=== PATIENT | male | born 1980 | race Caucasian/White ===

== ENCOUNTER 2022-02-21 11:27 | Emergency (ER) | payer OTHER, SELFPAY ==
[2022-02-21 11:28] VITALS: BP 171/93; PULSE 107; RESP 17; TEMP 36.8; O2SAT 100
[2022-02-21 11:39] VITALS: RESP 26
--- NOTE | 2022-02-21 11:39 | ECG_ITS ---
Measurements Intervals [place] Rate: 101 P: 60 KS: 160 QRS: 42 QRSD: 96 T: 40 QT: 328 QTc: 425 Interpretive Statements SINUS TACHYCARDIA ABNORMAL RHYTHM ECG NO PREVIOUS ECG AVAILABLE FOR COMPARISON Electronically Signed On 02-27-2022 21:19:08 CDT by Loulou Elder M.D.
--- NOTE | 2022-02-21 12:11 | ED.ABDPAIN ---
HPI - Abdominal Pain General Chief Complaint: Overdose Stated Complaint: overdose, heroin Time Seen by Provider: 02/21/22 11:46 Source: patient Mode of arrival: EMS Limitations: no limitations History of Present Illness HPI narrative: Patient is a 41-year-old male brought in by EMS due to drug overdose. Patient was given Narcan at the scene which eventually reversed his decreased responsiveness. Upon arrival to the emergency room patient is alert awake and oriented x4. Patient states that his friend gave him heroin to help with his pain, does not know what is laced with, last summer remembered I was talking to him my friend and next thing I know I was inside and ambulance . Patient states that it is a first-time that he used heroin, has been having back pain, has no medication to treat it and that is why he used it. 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 Patient denies any headache, dizziness, chest pain, shortness of breath, abdominal pain, nausea, vomiting, diarrhea, fever or chills. Patient denies any incontinence, weakness or numbness. Patient denies any suicidal homicidal thoughts. Related Data Home Medications Medication Instructions Recorded Confirmed No Home Medications 02/21/22 02/21/22 Allergies Allergy/AdvReac Type Severity Reaction Status Date / Time ketorolac Allergy Unknown Verified 02/21/22 11:42 tramadol Allergy Unknown Verified 02/21/22 11:42 Review of Systems Review of Systems: Per HPI All systems reviewed & are unremarkable except as noted in HPI and below Constitutional: Constitutional: Denies body ache(s), Denies chills, Denies excessive sweating, Denies fatigue, Denies fever(s), Denies headache(s), Denies lethargy, Denies malaise, Denies weakness and Denies weight loss Eyes: Eyes: Denies blurry vision, Denies change in vision and Denies loss of vision ENT: Denies dizziness, Denies ear discharge, Denies headache(s), Denies lip swelling, Denies epistaxis, Denies nasal congestion, Denies neck pain, Denies throat swelling and Denies tongue swelling Cardiovascular: Cardiovascular: Denies chest pain, Denies chest pain at rest, Denies chest pain with activity, Denies diaphoresis, Denies rapid heart rate, Denies edema, Denies irregular heart rhythm, Denies lightheadedness, Denies palpitations, Denies dyspnea and Denies dyspnea on exertion Respiratory: Respiratory: Denies chest congestion, Denies cough, Denies hemoptysis, Denies dyspnea and Denies dyspnea on exertion Gastrointestinal: Gastrointestinal: Denies abdominal pain, Denies melena, Denies hematochezia, Denies diarrhea, Denies nausea, Denies vomiting and Denies hematemesis Musculoskeletal: Musculoskeletal: Denies abnormal gait, Denies deformity, Denies joint swelling, Denies limited range of motion, Denies neck pain and Denies numbness Neurologic: Denies Abnormal speech present, Denies abnormal gait, Denies confusion, Denies dizziness, Denies headache(s), Denies focal weakness, Denies loss of vision, Denies numbness, Denies Other visual disturbances, Denies Sensory deficit (Neuro) and Denies weakness Psychiatric: Psychiatric: Denies confusion, Denies depression, Denies auditory hallucinations, Denies homicidal ideation and Denies suicidal ideation Endocrine: Endocrine: Denies cold intolerance, Denies excessive sweating, Denies fatigue, Denies heat intolerance and Denies palpitations Hematologic/Lymphatic: Hematologic/Lymphatic: Denies easy bleeding and Denies easy bruising Allergic/Immunologic: Allergic/Immunologic: Denies lip swelling, Denies throat swelling and Denies tongue swelling PMFSH Comments Past medical history: Hypertension Family history: Unknown Social history: Positive smoker, occasional EtOH use, occasional drug use Exam Const: General: cooperative, comfortable, no acute distress, well developed, alert and awake; No confusion Orientation/consciousness
[2022-02-21] MEDS: SODIUM CHLORIDE 0.9% IV 1,000 ML 999 ML IV CONT (12:19)
--- NOTE | 2022-02-21 12:23 | PC.NURSE ---
Pt unable to provide urine sample at this time, declined straight cath, has IV fluids infusing - given urinal and call light.
[2022-02-21 12:34] VITALS: BP 154/94; PULSE 130; RESP 28; O2SAT 99
[2022-02-21 12:34] LABS: Basophils Percent Auto 0.2 % (0.2-1.2); Eosinophils Absolute Auto 0.1 K/mm3 (0-0.3); Eosinophils Percent Auto 0.5 % (0-4.4); Hematocrit 46.3 % (42.0-52.0); Immature Granulocyte Absolute 0.03 K/mm3 (0.00-0.031); Immature Granulocyte Percent A 0.2 % (0-0.5); Lymphocytes Percent Auto 10.9 % (18.3-44.2); Mean Corpuscular HGB Conc 34.6 g/dl (32-36); Mean Corpuscular Hemoglobin 31.7 pg (26-34); Mean Corpuscular Volume 91.9 fl (80-100); Mean Platelet Volume 8.4 fl (7.4-10.4); Monocytes Absolute Auto 0.8 K/mm3 (0.1-0.6); Monocytes Percent Auto 6.1 % (2.6-8.5); Neutrophils Absolute Auto 10.5 K/mm3 (1.3-6.7); Neutrophils Percent Auto 82.1 % (45.5-73.1); Platelet Count Result 346 k/mm3 (150-375); Red Blood Count 5.04 M/mm3 (4.6-6.20); Red Cell Distribution Width 13.8 % (11.5-14.5); White Blood Count 12.8 K/mm3 (4.5-10.0)
[2022-02-21 12:45] LABS: Alanine Aminotransferase 36 U/L (4-50); Alkaline Phosphatase 81 U/L (38-126); Anion Gap 10 mmol/L (8-16); Aspartate Amino Transferase 37 U/L (17-59); Bilirubin,Total 0.7 mg/dL (0.2-1.3); Blood Urea Nitrogen 17 mg/dL (9-20); Calcium 9.8 mg/dL (8.4-10.2); Carbon Dioxide 30 mmol/L (22-30); Chloride 102 mmol/L (98-107); Estimated CRCL calculation 84 ml/min; Estimated Glomerular Filt Rate > 60; Glucose 117 mg/dL (65-110); Potassium 4.1 mmol/L (3.4-5.0); Sodium 142 mmol/L (137-145)
[2022-02-21 12:48] LABS: Acetaminophen < 10 ug/mL (10-30); Ethanol < 10 mg/dL (<10); Salicylate < 1.0 mg/dL (2-20)
--- NOTE | 2022-02-21 14:06 | PC.NURSE ---
Pt attempting to give urine sample in bathroom at this time, declines straight cath.
[2022-02-21 14:14] VITALS: BP 151/94; PULSE 111; RESP 22; O2SAT 98
[2022-02-21 14:34] LABS: Barbiturate Screen Urine Negative (Negative); Benzodiazepines Screen Urine Positive (Negative)
[2022-02-21 14:37] LABS: Cannabinoid Screen Urine Positive (Negative); Cocaine Screen Urine Negative (Negative); Methadone Screen Urine Negative (Negative); Opiate Screen Urine Positive (Negative); Phencyclidine Screen Urine Negative (Negative)
--- NOTE | 2022-02-21 15:22 | PC.NURSE ---
Pt out of room and states has ride coming, wishes to sign out AMA. Told pt he must sign paperwork and IV needs to be removed prior to his leaving. Pt agreed and approached desk, this RN states to go back to room for IV removal. Pt ambulated back to room in no distress.
[2022-02-21 15:26] VITALS: BP 156/96; PULSE 107; RESP 20; O2SAT 98
[2022-02-21 15:41] LABS: Amphetamine Screen Urine Positive (Negative)
== END 2022-02-21 15:27 | disposition left against medical advice (07) ==
PROVIDERS: Emergency Provider Emergency Medicine
DX: T40.1X1A Poisoning by heroin, accidental (unintentional), initial encounter (principal); F17.200 Nicotine dependence, unspecified, uncomplicated; R00.0 Tachycardia, unspecified
CPT/HCPCS: 36415; 80053; 80307; 85025; 93005; 96360; 96361; 99283; J7030

== ENCOUNTER 2022-05-02 20:00 | Emergency (ER) | payer OTHER, SELFPAY ==
--- NOTE | 2022-05-02 20:04 | ED.ABDPAIN ---
HPI - Abdominal Pain General Stated Complaint: abd pain Time Seen by Provider: 05/02/22 20:08 Source: patient and RN notes reviewed Mode of arrival: ambulatory Limitations: no limitations History of Present Illness HPI narrative: 41-year-old male presents with concern for abdominal pain, right flank pain, hematuria, passing a kidney stone. He reports prior to arrival he passed a stone that was very painful with hematuria, reports since then he is having difficulty passing any urine at all. He reports right flank pain, abdominal pain. He denies fever, body aches, chills. He reports history of kidney stones. MD elicited complaint: flank pain Related Data Home Medications Medication Instructions Recorded Confirmed No Home Medications 02/21/22 02/21/22 Allergies Allergy/AdvReac Type Severity Reaction Status Date / Time ketorolac Allergy Unknown Verified 05/02/22 20:06 tramadol Allergy Unknown Verified 05/02/22 20:06 Review of Systems Review of Systems: CONSTITUTIONAL: Denies malaise, chills, sweats, or fever. RESPIRATORY: Denies cough or dyspnea. GASTROINTESTINAL: Denies abdominal pain, nausea, vomiting, diarrhea, bloody, or mucous stools. GENITOURINARY: Denies dysuria, hematuria, right flank pain MUSCULOSKELETAL: Denies myalgia. NEUROLOGIC: Denies headache. All systems reviewed & are unremarkable except as noted in HPI and below PMFSH Comments At time of signature, agree with nursing past medical, surgical, social and family history. There is no relevant family history pertinent to the presenting complaint Exam Narrative: GENERAL: Nontoxic-appearing and in no acute distress. HEAD: Normocephalic, atraumatic. EYES: PERRLA, conjunctivae clear ENT: Nares clear. Mucous membranes moist. NECK: Supple. No lymphadenopathy CHEST: Speaks in full sentences. No respiratory distress. HEART: Regular rate and rhythm. SKIN: Warm, dry, no rash. NEURO: Alert and oriented x3. PSYCH: Slightly agitated, hyperactive Course Course Emergency Course: Patient is aware of, understands and agrees to be transferred to the emergency department. Patient agrees to proceed directly to the emergency department. Portions of this record may have been created with voice recognition software Level of Care: Express Care Visit Vital Signs Vital signs: Reviewed. Transfer Transfered to: [facility] Medical Transportation: Other (Private vehicle) Transfer rationale: Flank pain, hematuria, Accepting physician: Bigg Transfer comments: Patient stable for transfer via private vehicle MDM - Abdominal Pain MDM Narrative Medical decision making narrative: Exam findings warrant further evaluation emergency department; patient is non-toxic appearing and is in no distress. Differential Diagnosis Differential diagnosis: Likely abdominal pain and calculus of kidney Critical Care Time Critical Care Time Critical Care Time: No Discharge Plan Discharge Clinical Impression: Acute flank pain Patient Disposition: Acute Care Hospital Condition: Stable Prescriptions: No Action No Home Medications Follow-up/Referrals: UNKNOWN,DOCTOR [Primary Care Provider] - Time of Disposition: 20:22
[2022-05-02 20:10] VITALS: BP 123/101; PULSE 99; RESP 16; TEMP 36.7; O2SAT 99
--- NOTE | 2022-05-02 20:21 | PC.NURSE ---
requested to be transferred to [facility]. stated unable to give ua spec. and last similar episode had to be catherized.
--- NOTE | 2022-05-02 20:30 | PC.NURSE ---
party demonstrator and rn chart faxed to [facility] at [phone]
--- NOTE | 2022-05-02 20:36 | PC.NURSE ---
was given a urine strainer at [place] by nurse lemus.
== END 2022-05-02 20:22 | disposition short-term general hospital (02) ==
PROVIDERS: Emergency Provider Nurse Practitioner
DX: R10.9 Unspecified abdominal pain (principal)
CPT/HCPCS: 99212; G0463

== ENCOUNTER 2022-05-20 22:13 | Emergency (ER) | payer OTHER, SELFPAY ==
--- NOTE | ~2022-05-20 | XR_ITS ---
XR lumbar spine 2-3V DATE: 05/21/2022 01:40 INDICATION: Fall. Back pain. TECHNIQUE: AP, lateral, coned lateral lumbosacral views COMPARISON: None FINDINGS: Normal alignment of the lumbar vertebrae. No fracture or bone destruction or spondylolisthe sis. The lumbar pedicles are intact. There is moderately severe degenerative disc disease at L1-2, moderate degenerative disc disease at L 2-3 and mild degenerative disc disease at the remaining lumbar and lumbosacral interspaces. The sacroiliac joints are intact. IMPRESSION: Multilevel degenerative disc disease, most pronounced at L1 to No fracture or spondylolisthesis Reviewed, dictated and finalized at location B.
--- NOTE | ~2022-05-20 | XR_ITS ---
EXAMINATION: XR wrist RT min 3V, XR hand RT min 3V DATE: 05/21/2022 01:40 INDICATION: Right hand injury with medial sided right hand and wrist pain. TECHNIQUE: 1. Posteroanterior, ulnar deviation, oblique, and lateral views of the right wrist were obtained. 2. Dorsal palmar, oblique and lateral views of the right hand were obtained. COMPARISON: None. FINDINGS: Nondisplaced intra-articular fracture at the radial base of the second proximal phalanx which extends through a lytic lesion filling the base and proximal metaphyseal region. The fracture margins appear smooth and would be expected for an acute fracture suggesting this may be subacute. No productive ch anges of healing however are evident. Small corticated ossicle along the corticated tip of the ulnar styloid process which could represent either a chronic nonunited avulsion fracture fragment or hetero topic ossification related to chronic soft tissue injury. No other fractures identified. Alignment of the right hand and wrist remains otherwise normal. Mild polyarticular osteoarthritis at the distal r adioulnar, triscaphe, first carpometacarpal, first-third metacarpophalangeal multiple interphalangeal joints. Subarticular lucencies with thin sclerotic margins likely represent degenerative subchondral cysts at the base of the first metacarpal and head of the third metacarpal. IMPRESSION: 1. Age-indeterminate nondisplaced pathologic fracture, potentially subacute extending across the radi al base of the second proximal phalanx where there is no underlying large lucent lesion with relative ly narrow zone of transition favoring an indolent etiology. 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 2. 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 Reviewed, dictated and finalized at location A. IMPRESSION: 1. Age-indeterminate nondisplaced pathologic fracture, potentially subacute ext ending across the radial base of the second proximal phalanx where there is no underlying large lucent lesion with relatively narrow zone of transition favori ng an indolent etiology. 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 2. 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
[2022-05-20 23:16] VITALS: BP 137/94; PULSE 88; RESP 18; TEMP 36.5; O2SAT 100
[2022-05-21 01:00] VITALS: BP 142/87; PULSE 86; RESP 69; O2SAT 97
--- NOTE | 2022-05-21 01:23 | ED.FALL ---
HPI - Fall General Chief Complaint: Fall Stated Complaint: hand and back pain s/p falling down stairs Time Seen by Provider: 05/21/22 01:09 History of Present Illness HPI Narrative: 41-year-old male presents emergency room for multiple injuries sustained from fall. Patient states that he was taking a shower when he was told that his dogs were fighting downstairs. Patient abruptly ran out of the shower got dressed and proceeded to run down the stairs. Patient states that he slipped down the stairs landing on his lower back and attempted to catch himself with his right hand. Patient is complaining of right lower back pain, right wrist pain and right hand pain. Patient states he is able to ambulate without pain. Related Data Allergies Allergy/AdvReac Type Severity Reaction Status Date / Time ketorolac Allergy Unknown Verified 05/02/22 20:06 tramadol Allergy Unknown Verified 05/20/22 23:18 Review of Systems Review of Systems: CONSTITUTIONAL: Denies fever, chills, or sweats. EYES: Denies visual changes, redness, or discharge. ENT: Denies rhinorrhea, congestion, sore throat, or otalgia. CARDIOVASCULAR: Denies chest pain, palpitations, or edema. RESPIRATORY: Denies cough or dyspnea. GASTROINTESTINAL: Denies abdominal pain, nausea, vomiting, or diarrhea. GENITOURINARY: Denies dysuria or hematuria. SKIN: Denies rash or itching. MUSCULOSKELETAL: Reports right hand pain. NEUROLOGIC: Denies headache, numbness, dizziness, or weakness. PSYCHIATRIC: Denies anxiety or depression. Exam Narrative: GENERAL: Well-appearing, well-nourished, no physical limitations, and in no acute distress. HEAD: Normocephalic, atraumatic. EYES: Conjunctivae normal, PERRLA and EOMI. CHEST: Clear to auscultation. No respiratory distress. No wheezes rales or rhonchi. No tenderness. HEART: Regular rate and rhythm. No murmur heard. Normal peripheral pulses. : Normal external male/female exam. BACK: No midline lumbar tenderness, step-offs, no bony abnormality; FROM; tenderness over the right paralumbar muscles EXTREMITIES: Right hand: Tenderness to the fourth and fifth metacarpals, with soft tissue swelling. Neurovascular is intact distally. Tenderness and soft tissue swelling over the distal radius, full range of motion of the wrist, no bony normality SKIN: Warm, dry, no rash. No noted wounds NEURO: No focal deficits. Alert and oriented x3. MAEW. CN's II-XI intact bilaterally, normal gait PSYCH: Cooperative. Normal mood and affect. Course Vital Signs Vital signs: Vital Signs Temperature 36.5 C 05/20/22 23:16 Pulse Rate 88 05/20/22 23:16 Respiratory Rate 18 05/20/22 23:16 Blood Pressure 137/94 H 05/20/22 23:16 Pulse Oximetry 100 05/20/22 23:16 Oxygen Delivery Room Air 05/20/22 23:16 Temperature 36.5 C 05/20/22 23:16 Pulse Rate 88 05/20/22 23:16 Respiratory Rate 18 05/20/22 23:16 Blood Pressure 137/94 H 05/20/22 23:16 Pulse Oximetry 100 05/20/22 23:16 Oxygen Delivery Room Air 05/20/22 23:16 MDM - Fall Imaging Data My impression: l-spine: No acute bony abnormality left wrist: No acute bony abnormality Left hand: No acute bony abnormality Discharge Plan Discharge Clinical Impression: Contusion of back, Contusion of hand Patient Disposition: Home, Self-Care Condition: Stable Instructions: Antibiotic Form, Contusion in Adults (ED) Prescriptions: New hydrocodone-acetaminophen 5-325 mg tablet 1 tablet PO Q8H PRN (Reason: pain) Qty: 12 0RF Follow-up/Referrals: PHYSICIAN,SYSTEMS DEVELOPMENT MANAGER [Primary Care Provider] - Time of Disposition: 01:49
== END 2022-05-21 02:18 | disposition home or self-care (01) ==
LOC: ANHED 05-21 02:01
PROVIDERS: Emergency Provider Nurse Practitioner Family
DX: S30.0XXA Contusion of lower back and pelvis, initial encounter (principal); S60.221A Contusion of right hand, initial encounter; M19.031 Primary osteoarthritis, right wrist; M19.041 Primary osteoarthritis, right hand; M51.36 Other intervertebral disc degeneration, lumbar region; W10.9XXA Fall (on) (from) unspecified stairs and steps, initial encounter
CPT/HCPCS: 72100; 73110; 73130; 99284